=== PATIENT | male | born 1990 | race Two or more races ===

== ENCOUNTER 2019-12-25 16:51 | Emergency (ER) | payer SELFPAY ==
[~2019-12-25] VITALS: Ht 170.2 cm; Wt 81.6 kg
[2019-12-25 17:10] VITALS: BP 142/71
[2019-12-25] MEDS ORDERED: Tetracaine 0.5% Opth 4ml Soln LEFT EYE ONE (17:15)
[2019-12-25] MEDS ORDERED: Morgan Lens TOPIC ONE (17:15)
[2019-12-25] MEDS ORDERED: Fluorescein Strips LEFT EYE ONE (17:15)
--- NOTE | 2019-12-25 18:45 | Emergency Room Report ---
History of Present Illness General Chief Complaint: Eye Problems Source: Patient Present Illness HPI 29-year-old male with no significant past medical history here complaining of left eye burning sensation after an unknown liquid from a tree drop and broke his eyes prior to arrival. Denies any fall or injury or any breath. Patient has been applying ice to the affected area. Visual acuity is 20/25. Denies being any contact lenses or eyeglasses. Denies photophobia, headache and dizziness. Conjunctive is injected irritated. No corneal abrasion or ulceration noted on my examination with Guzman lamp. After administration of Rc lens patient felt better. Also some periorbital cellulitis noted. Patient has not taken medication for symptom relief. Denies all other associated symptoms. Allergies: Coded Allergies: No Known Allergies (Unverified , 12/25/19) COVID-19 Screening Contact w/high risk pt: No Experienced COVID-19 symptoms?: No COVID-19 Testing performed [employer]ER: No Patient History Past Medical History: see triage record Past Surgical History: none Pertinent Family History: none Immunizations: UTD Reviewed Nursing Documentation: PMH: Agreed; PSxH: Agreed Nursing Documentation-PMH Past Medical History: No Stated History Review of Systems All Other Systems: negative except mentioned in HPI Physical Exam Vital Signs Date Time Temp Pulse Resp B/P (MAP) Pulse Ox O2 Delivery O2 Flow Rate FiO2 12/25/19 16:59 99.0 63 18 137/76 (96) 97 Room Air Sp02 EP Interpretation: reviewed, normal General Appearance: no apparent distress, alert, GCS 15, non-toxic Head: normocephalic, atraumatic Eyes: left eye other - Conjunctive are injected, no abrasion or ulceration noted, periorbital cellulitis noted; bilateral eye PERRL ENT: hearing grossly normal, normal pharynx, no angioedema, normal voice Neck: full range of motion, supple/symm/no masses Respiratory: chest non-tender, lungs clear, normal breath sounds, speaking full sentences Cardiovascular #1: regular rate, rhythm, no edema Gastrointestinal: normal bowel sounds, non tender, soft, non-distended, no guarding, no rebound Rectal: deferred Musculoskeletal: back normal Neurologic: alert, motor strength/tone normal, oriented x3, sensory intact, responsive, speech normal Psychiatric: judgement/insight normal, memory normal, mood/affect normal, no suicidal/homicidal ideation Skin: no rash Lymphatic: no adenopathy Medical Decision Making PA Attestation All diagnoses and treatment plans were reviewed and discussed with my supervising physician Dr. Shea Diagnostic Impression: Primary Impression: Chemical conjunctivitis Additional Impression: Periorbital cellulitis ER Course 29-year-old male with no significant past medical history here complaining of left eye burning sensation after an unknown liquid from a tree drop and broke his eyes prior to arrival. Denies any fall or injury or any breath. Patient has been applying ice to the affected area. Visual acuity is 20/25. Denies being any contact lenses or eyeglasses. Denies photophobia, headache and dizziness. Conjunctive is injected irritated. No corneal abrasion or ulceration noted on my examination with Guzman lamp. After administration of Rc lens patient felt better. Also some periorbital cellulitis noted. Patient has not taken medication for symptom relief. Denies all other associated symptoms. Ddx considered but are not limited to: bacterial conjunctivitis, allergic conjunctivitis, viral conjunctivitis, periorbital cellulitis, global trauma Vital signs: are WNL, pt. is afebrile H&PE are most consistent with: Chemical conjunctivitis, periorbital cellulitis ORDERS: Ofloxacin ophthalmic, Augmentin ED INTERVENTIONS: Rc lens DISCHARGE: At this time pt. is stable for d/c to home. Will provide printed patient care instructions, and any necessary prescriptions. Care plan and follow up instructions have been discussed with the patient prior to discharge. Advised patient to follow-up with biochemical engineer, take medication as directed, avoid prolonged exposure to monitors, wear protective sunglasses, if worsening symptoms return to the emergency room Last Vital Signs Date Time Temp Pulse Resp B/P (MAP) Pulse Ox O2 Delivery O2 Flow Rate FiO2 12/25/19 17:10 98.9 77 18 142/71 98 Room Air Disposition: HOME, SELF-CARE Condition: Stable Scripts Amoxicillin/Potassium Clav 875-125* (AUGMENTIN 875-125 TABLET*) 1 Each Tablet 1 TAB ORAL TWICE A DAY for 7 Days, #14 TAB Prov: Lizbeth Pagan 12/25/19 Ofloxacin (Ofloxacin) 5 Ml Drops 2 DROP OP Q6HR for 7 Days, #5 ML Prov: Lizbeth Pagan 12/25/19 Referrals: NOT CHOSEN IPA/MD,REFERRING (PCP) Patient Instructions: Cellulitis, [id number], Chemical Conjunctivitis, [id number] Additional Instructions: Follow-up with biochemical engineer, take medication as directed, if worsening symptoms return to the emergency room Lizbeth Pagan Dec 25, 2019 18:45
[2019-12-25] MEDS ORDERED: AUGMENTIN 875-1 EAC1 ORAL (18:47)
[2019-12-25] MEDS ORDERED: OFLOXACIN10 ML OP (18:47)
[2019-12-25 18:55] VITALS: BP 138/75
== END 2019-12-25 18:55 | disposition home or self-care (01) ==
LOC: EMR 18:01
DX: H10.212 Acute toxic conjunctivitis, left eye (principal); L03.213 Periorbital cellulitis
CPT/HCPCS: 99283